=== PATIENT | female | born 1960 | race African-American/Black ===

== ENCOUNTER 2017-11-15 21:54 | Emergency (ER) | payer MEDICARE, MEDICAID ==
[~2017-11-15] VITALS: Ht 177.8 cm; Wt 91.0 kg
[~2017-11-15 21:54] MED LIST: AMLO10TA4 PO; ATOR10TA PO; FERR-63 PO; LABE200T28 PO; LIDO700A TP; LISI-604 PO; OMEP40CA34 PO; OXYC-100 PO
[2017-11-15 22:19] VITALS: BP 101/61
== END 2017-11-16 01:01 | disposition left against medical advice (07) ==
LOC: ER 21:54
DX: R73.9 Hyperglycemia, unspecified (principal); Z53.21 Procedure and treatment not carried out due to patient leaving prior to being seen by health care provider

== ENCOUNTER 2018-04-26 20:30 | Inpatient (IN) | payer MEDICARE, MEDICAID ==
[~2018-04-26] VITALS: Ht 177.8 cm; Wt 79.0 kg
[2018-04-26 23:00] VITALS: BP 151/64
[2018-04-26] MEDS ORDERED: NON FORMULARY PATIENT HOME MED EA XX SCH ×2 (23:45)
[2018-04-26] MEDS ORDERED: CLONIDINE 0.1MG TABLET PO PRN (23:45)
[2018-04-26] MEDS ORDERED: IPRATROPIUM/ALBUTEROL 0.5-3(2.5)MG/3ML NEB HHN PRN (23:45)
[2018-04-26] MEDS ORDERED: NITROGLYCERIN 0.4MG TABLET SL SL PRN (23:45)
[2018-04-26] MEDS ORDERED: DEXTROSE 50% WATER 50ML SYRINGE IV PRN ×2 (23:45)
[2018-04-26] MEDS ORDERED: POLYETHYLENE GLYCOL 3350 (17GM) 1 DOSE PACK PO PRN (23:45)
[2018-04-27] MEDS ORDERED: MORPHINE SULFATE 4 MG/ML CPJ (NOT FOR IM USE) IV PRN
[2018-04-27] MEDS ORDERED: IBUPROFEN 400MG TABLET PO PRN
[2018-04-27] MEDS: ATORVASTATIN CALCIUM 20MG TABLET PO SCH ×2 (00:25→21:15)
[2018-04-27] MEDS: TEMAZEPAM 15MG CAPSULE PO SCH ×2 (00:28→21:00)
[2018-04-27] MEDS ORDERED: INSULIN (00:44)
[2018-04-27] MEDS ORDERED: BLOOD SUGAR DIAGNOSTIC STRIP TEST SCH (06:30)
[2018-04-27 06:59] LABS: BASOPHILS % 0.2 % (0.0-2.0); EOSINOPHILS % 0.7 % (0.0-5.0); HEMATOCRIT. 29.7 % (36.0-48.0); HEMOGLOBIN. 10.2 g/dL (12.0-16.0); LYMPHOCYTES % 32.3 % (20.0-50.0); MEAN CORPUSCULAR HEMOGLOBIN 27.4 pg (28.0-32.0); MEAN CORPUSCULAR VOLUME 80.2 fL (81.0-99.0); MEAN PLATELET VOLUME 8.4 fl (7.4-10.4); MONOCYTES % 8.2 % (2.0-8.0); NEUTROPHILS % 58.6 % (40.0-76.0); PLATELET 185 x1000/uL (130-400); RED CELL DISTRIBUTION WIDTH 13.4 % (11.6-14.6)
[2018-04-27] MEDS: BLOOD SUGAR DIAGNOSTIC STRIP TEST SCH ×4 (07:05→21:23)
[2018-04-27] MEDS: INSULIN LISPRO 100 UNITS/ML SUBCUT SCH ×4 (07:08→21:51)
[2018-04-27 07:17] LABS: INR 1.1; PROTHROMBIN TIME 10.7 sec (9.1-11.1)
[2018-04-27 07:24] LABS: CHLORIDE 107 mEq/L (98-107)
[2018-04-27 07:47] LABS: T4 FREE 3.11 ng/dL (0.76-1.46)
[2018-04-27] MEDS: TRAMADOL 50MG TABLET PO PRN ×2 (07:54→15:10)
[2018-04-27 08:00] VITALS: BP 157/72
[2018-04-27] MEDS: METOPROLOL TARTRATE 25MG TABLET PO SCH ×2 (08:55→21:17)
[2018-04-27] MEDS: LEVETIRACETAM 500MG TABLET PO SCH ×2 (08:56→21:14)
[2018-04-27] MEDS: AMLODIPINE 10MG TABLET PO SCH (08:56)
[2018-04-27] MEDS: APIXABAN 5 MG TABLET PO SCH ×2 (08:56→18:24)
[2018-04-27] MEDS: METHIMAZOLE 10MG TABLET PO SCH ×2 (08:57→18:25)
[2018-04-27] MEDS: LISINOPRIL 20MG TABLET PO SCH ×2 (08:58→21:18)
[2018-04-27] MEDS ORDERED: CLOPIDOGREL 75MG TABLET PO SCH (09:00)
[2018-04-27] MEDS: CYCLOBENZAPRINE 10MG TABLET PO PRN (09:56)
[2018-04-27 20:00] VITALS: BP 143/65
[2018-04-27 20:40] LABS: LDL CHOLESTEROL 65 mg/dL (5-100)
[2018-04-27 20:41] LABS: ETHANOL BLOOD < 10 mg/dL
[2018-04-27 20:45] LABS: T4 FREE 3.23 ng/dL (0.76-1.46)
[2018-04-27 20:46] LABS: HDL CHOLESTEROL 27 mg/dL (40-59)
[2018-04-27] MEDS: INSULIN GLARGINE UD 100 UNITS/ML SYR SUBCUT SCH (21:48)
[2018-04-28] MEDS: BLOOD SUGAR DIAGNOSTIC STRIP TEST SCH ×4 (06:49→21:13)
[2018-04-28] MEDS: INSULIN LISPRO 100 UNITS/ML SUBCUT SCH ×4 (07:10→21:25)
[2018-04-28 08:00] VITALS: BP 137/67
[2018-04-28 08:12] LABS: PHOSPHORUS 4.6 mg/dL (2.5-4.9)
[2018-04-28] MEDS: TRAMADOL 50MG TABLET PO PRN ×2 (08:54→20:59)
[2018-04-28] MEDS: LEVETIRACETAM 500MG TABLET PO SCH ×2 (08:54→20:57)
[2018-04-28] MEDS: METHIMAZOLE 10MG TABLET PO SCH ×2 (08:55→16:31)
[2018-04-28] MEDS: LISINOPRIL 20MG TABLET PO SCH ×2 (08:55→20:58)
[2018-04-28] MEDS: METOPROLOL TARTRATE 25MG TABLET PO SCH (08:56)
[2018-04-28] MEDS: APIXABAN 5 MG TABLET PO SCH ×2 (08:56→16:31)
[2018-04-28] MEDS: AMLODIPINE 10MG TABLET PO SCH (09:00)
[2018-04-28] MEDS: CYCLOBENZAPRINE 10MG TABLET PO PRN (11:17)
[2018-04-28 12:36] LABS: FOLIC ACID (FOLATE) SERUM 16.8 ng/mL (>5.38)
[2018-04-28 13:12] LABS: CLARITY URINE CLEAR (CLEAR); COLOR URINE YELLOW (YELLOW); KETONES URINE NEGATIVE (NEGATIVE); LEUKOCYTE ESTERASE URINE NEGATIVE (NEGATIVE); NITRITE URINE NEGATIVE (NEGATIVE); OCCULT BLOOD URINE NEGATIVE (NEGATIVE); PROTEIN URINE TRACE (NEGATIVE); SPECIFIC GRAVITY URINE 1.023 (1.005-1.030)
[2018-04-28 13:48] LABS: *AMPHETAMINES SCREEN URINE NEGATIVE (NEGATIVE); *BARBITURATES SCREEN URINE NEGATIVE (NEGATIVE)
[2018-04-28 13:49] LABS: *BENZODIAZEPINES SCREEN URINE NEGATIVE (NEGATIVE); *COCAINE SCREEN URINE NEGATIVE (NEGATIVE); CANNABINOID URINE SCREEN NEGATIVE (NEGATIVE); METHADONE URINE SCREEN NEGATIVE (NEGATIVE); OPIATES URINE SCREEN PRESUMTIVE POSITIVE (NEGATIVE); PHENCYCLIDINE URINE SCREEN NEGATIVE (NEGATIVE)
[2018-04-28] MEDS ORDERED: CYCLOBENZAPRINE 10MG TABLET PO SCH (14:00)
[2018-04-28] MEDS: LIDOCAINE 5% PATCH TOP SCH (16:31)
[2018-04-28] MEDS ORDERED: NON FORMULARY PATIENT HOME MED EA XX SCH (16:45)
[2018-04-28 20:00] VITALS: BP 131/68
[2018-04-28] MEDS ORDERED: IRON SUCROSE COMPLEX 100 MG in SODIUM CHLORIDE 0.9% 100 ML IV SCH (20:00)
[2018-04-28] MEDS: ATORVASTATIN CALCIUM 20MG TABLET PO SCH (20:56)
[2018-04-28] MEDS: TEMAZEPAM 15MG CAPSULE PO SCH (20:57)
[2018-04-28] MEDS: PROPRANOLOL HCL 10MG TABLET PO SCH (21:00)
[2018-04-28] MEDS: INSULIN GLARGINE UD 100 UNITS/ML SYR SUBCUT SCH (23:23)
[2018-04-29 04:00] VITALS: BP 119/64
[2018-04-29] MEDS: BLOOD SUGAR DIAGNOSTIC STRIP TEST SCH ×5 (06:30→23:30)
[2018-04-29] MEDS: INSULIN LISPRO 100 UNITS/ML SUBCUT SCH ×3 (06:30→17:46)
[2018-04-29 06:53] LABS: CHLORIDE 104 mEq/L (98-107)
[2018-04-29 06:55] LABS: BASOPHILS % 0.3 % (0.0-2.0); EOSINOPHILS % 1.3 % (0.0-5.0); HEMATOCRIT. 31.3 % (36.0-48.0); HEMOGLOBIN. 10.5 g/dL (12.0-16.0); LYMPHOCYTES % 41.3 % (20.0-50.0); MEAN CORPUSCULAR HEMOGLOBIN 27.2 pg (28.0-32.0); MEAN CORPUSCULAR VOLUME 80.9 fL (81.0-99.0); MEAN PLATELET VOLUME 8.5 fl (7.4-10.4); MONOCYTES % 10.4 % (2.0-8.0); NEUTROPHILS % 46.7 % (40.0-76.0); PLATELET 185 x1000/uL (130-400); RED BLOOD CELL COUNT 3.87 mill/uL (4.2-5.4); RED CELL DISTRIBUTION WIDTH 13.3 % (11.6-14.6)
[2018-04-29 08:00] VITALS: BP 138/72
[2018-04-29] MEDS: LEVETIRACETAM 500MG TABLET PO SCH ×2 (08:59→23:10)
[2018-04-29] MEDS: METHIMAZOLE 10MG TABLET PO SCH ×2 (09:00→17:51)
[2018-04-29] MEDS: APIXABAN 5 MG TABLET PO SCH ×2 (09:00→17:51)
[2018-04-29] MEDS: AMLODIPINE 10MG TABLET PO SCH (09:00)
[2018-04-29] MEDS: LISINOPRIL 20MG TABLET PO SCH ×2 (09:00→23:13)
[2018-04-29] MEDS: LIDOCAINE 5% PATCH TOP SCH (09:02)
[2018-04-29] MEDS: PROPRANOLOL HCL 10MG TABLET PO SCH ×2 (09:14→23:09)
[2018-04-29] MEDS: TRAMADOL 50MG TABLET PO PRN ×2 (09:15→13:00)
[2018-04-29 20:00] VITALS: BP 117/65
[2018-04-29] MEDS: TEMAZEPAM 15MG CAPSULE PO SCH (23:10)
[2018-04-29] MEDS: ATORVASTATIN CALCIUM 20MG TABLET PO SCH (23:10)
[2018-04-29] MEDS: INSULIN GLARGINE UD 100 UNITS/ML SYR SUBCUT SCH (23:36)
[2018-04-30 06:00] VITALS: BP 116/62
[2018-04-30] MEDS: INSULIN LISPRO 100 UNITS/ML SUBCUT SCH ×3 (06:49→18:22)
[2018-04-30 08:00] VITALS: BP 120/59
[2018-04-30] MEDS: APIXABAN 5 MG TABLET PO SCH ×2 (09:30→18:13)
[2018-04-30] MEDS: LISINOPRIL 20MG TABLET PO SCH ×2 (09:30→21:09)
[2018-04-30] MEDS: AMLODIPINE 10MG TABLET PO SCH (09:30)
[2018-04-30] MEDS: LEVETIRACETAM 500MG TABLET PO SCH ×2 (09:31→21:09)
[2018-04-30] MEDS: METHIMAZOLE 10MG TABLET PO SCH ×2 (09:31→18:13)
[2018-04-30] MEDS: PROPRANOLOL HCL 10MG TABLET PO SCH ×2 (09:31→21:08)
[2018-04-30] MEDS: LIDOCAINE 5% PATCH TOP SCH (09:33)
[2018-04-30] MEDS: TRAMADOL 50MG TABLET PO PRN ×2 (09:44→19:01)
[2018-04-30] MEDS ORDERED: BISACODYL 10MG SUPP PR PRN (11:30)
[2018-04-30] MEDS ORDERED: NA PHOS,M-B/NA PHOS,DI-BA ENEMA 118ML PR NR (11:30)
[2018-04-30] MEDS: BLOOD SUGAR DIAGNOSTIC STRIP TEST SCH ×3 (12:10→21:53)
[2018-04-30] MEDS: LACTULOSE 20G/30ML UDC PO SCH ×3 (12:52→21:09)
[2018-04-30 13:06] LABS: ANTI-THROMBIN ACTIVITY 134 % (75-135); DRVVT LA 61.7 sec (0.0-47.0); PROTEIN C FUNCTIONAL 127 % (73-180)
[2018-04-30] MEDS: FERROUS SULFATE 325MG TABLET PO SCH ×2 (13:38→18:13)
[2018-04-30] MEDS: DOCUSATE SODIUM 100MG CAPSULE PO SCH (17:00)
[2018-04-30 20:00] VITALS: BP 138/66
[2018-04-30] MEDS: CYCLOBENZAPRINE 10MG TABLET PO PRN (21:08)
[2018-04-30] MEDS: TEMAZEPAM 15MG CAPSULE PO SCH (21:08)
[2018-04-30] MEDS: ATORVASTATIN CALCIUM 20MG TABLET PO SCH (21:09)
[2018-04-30] MEDS: POLYETHYLENE GLYCOL 3350 (17GM) 1 DOSE PACK PO SCH (21:15)
[2018-04-30] MEDS: INSULIN GLARGINE UD 100 UNITS/ML SYR SUBCUT SCH (22:48)
[2018-05-01 02:45] VITALS: BP 144/72
[2018-05-01 06:00] VITALS: BP 137/63
[2018-05-01] MEDS: BLOOD SUGAR DIAGNOSTIC STRIP TEST SCH ×4 (06:06→20:34)
[2018-05-01] MEDS: INSULIN LISPRO 100 UNITS/ML SUBCUT SCH ×3 (07:42→17:35)
[2018-05-01] MEDS: LIDOCAINE 5% PATCH TOP SCH (08:54)
[2018-05-01] MEDS: DOCUSATE SODIUM 100MG CAPSULE PO SCH ×2 (08:56→17:28)
[2018-05-01] MEDS: APIXABAN 5 MG TABLET PO SCH ×2 (08:57→17:28)
[2018-05-01] MEDS: METHIMAZOLE 10MG TABLET PO SCH ×2 (08:57→17:28)
[2018-05-01] MEDS: ASCORBIC ACID 500 MG TABLET PO SCH (08:57)
[2018-05-01] MEDS: FERROUS SULFATE 325MG TABLET PO SCH ×3 (08:57→17:28)
[2018-05-01] MEDS: LEVETIRACETAM 500MG TABLET PO SCH ×2 (08:58→20:25)
[2018-05-01] MEDS: AMLODIPINE 10MG TABLET PO SCH (09:00)
[2018-05-01] MEDS ORDERED: NA PHOS,M-B/NA PHOS,DI-BA ENEMA 118ML PR PRN (09:00)
[2018-05-01] MEDS: LISINOPRIL 20MG TABLET PO SCH ×2 (09:00→20:28)
[2018-05-01] MEDS: PROPRANOLOL HCL 10MG TABLET PO SCH ×2 (09:00→20:26)
[2018-05-01 10:06] LABS: DRVVT MIX LA 47.3 sec (0.0-47.0)
[2018-05-01 13:08] LABS: LUPUS ANTICOAG INTERPRETATION Comment: (.)
[2018-05-01 20:00] VITALS: BP 132/75
[2018-05-01] MEDS: ATORVASTATIN CALCIUM 20MG TABLET PO SCH (20:26)
[2018-05-01] MEDS: TEMAZEPAM 15MG CAPSULE PO SCH (20:28)
[2018-05-01] MEDS: TRAMADOL 50MG TABLET PO PRN (20:28)
[2018-05-01] MEDS: POLYETHYLENE GLYCOL 3350 (17GM) 1 DOSE PACK PO SCH (20:33)
[2018-05-01] MEDS: INSULIN GLARGINE UD 100 UNITS/ML SYR SUBCUT SCH (21:42)
[2018-05-02] MEDS: BLOOD SUGAR DIAGNOSTIC STRIP TEST SCH ×4 (06:25→22:00)
[2018-05-02] MEDS: INSULIN LISPRO 100 UNITS/ML SUBCUT SCH ×3 (06:30→17:34)
[2018-05-02 07:00] LABS: BASOPHILS % 0.3 % (0.0-2.0); EOSINOPHILS % 1.4 % (0.0-5.0); HEMATOCRIT. 29.5 % (36.0-48.0); HEMOGLOBIN. 10.3 g/dL (12.0-16.0); LYMPHOCYTES % 43.8 % (20.0-50.0); MEAN CORPUSCULAR HEMOGLOBIN 27.7 pg (28.0-32.0); MEAN CORPUSCULAR VOLUME 79.5 fL (81.0-99.0); MEAN PLATELET VOLUME 8.2 fl (7.4-10.4); MONOCYTES % 9.6 % (2.0-8.0); NEUTROPHILS % 44.9 % (40.0-76.0); PLATELET 180 x1000/uL (130-400); RED BLOOD CELL COUNT 3.71 mill/uL (4.2-5.4); RED CELL DISTRIBUTION WIDTH 13.4 % (11.6-14.6)
[2018-05-02 07:26] LABS: CHLORIDE 105 mEq/L (98-107)
[2018-05-02 08:00] VITALS: BP 124/76
[2018-05-02] MEDS: AMLODIPINE 10MG TABLET PO SCH (09:12)
[2018-05-02] MEDS: DOCUSATE SODIUM 100MG CAPSULE PO SCH ×2 (09:12→17:31)
[2018-05-02] MEDS: METHIMAZOLE 10MG TABLET PO SCH ×2 (09:13→17:31)
[2018-05-02] MEDS: LISINOPRIL 20MG TABLET PO SCH (09:13)
[2018-05-02] MEDS: ASCORBIC ACID 500 MG TABLET PO SCH (09:13)
[2018-05-02] MEDS: LEVETIRACETAM 500MG TABLET PO SCH ×2 (09:13→21:52)
[2018-05-02] MEDS: FERROUS SULFATE 325MG TABLET PO SCH ×3 (09:14→17:31)
[2018-05-02] MEDS: APIXABAN 5 MG TABLET PO SCH ×2 (09:14→17:31)
[2018-05-02] MEDS: PROPRANOLOL HCL 10MG TABLET PO SCH (09:14)
[2018-05-02] MEDS: LIDOCAINE 5% PATCH TOP SCH (09:15)
[2018-05-02] MEDS: HYDROCODONE/ACETAMINOPHEN 5/325MG TABLET PO PRN (10:30)
[2018-05-02 13:06] LABS: ANTI-CARDIOLIPIN AB IGA < 9 APL U/mL (0-11); ANTI-CARDIOLIPIN AB IGG < 9 GPL U/mL (0-14); ANTI-CARDIOLIPIN AB IGM < 9 MPL U/mL (0-12)
[2018-05-02] MEDS ORDERED: POTASSIUM CHLORIDE 20MEQ TABLET SR PO SCH (13:45)
[2018-05-02 14:16] VITALS: BP 113/54
[2018-05-02] MEDS: PROPRANOLOL HCL 20MG TABLET PO SCH ×2 (14:20→21:54)
[2018-05-02 20:00] VITALS: BP_SYST 125; BP_SYST 138; BP_DIAS 62; BP_DIAS 77
[2018-05-02] MEDS: TRAMADOL 50MG TABLET PO PRN (20:23)
[2018-05-02] MEDS: POLYETHYLENE GLYCOL 3350 (17GM) 1 DOSE PACK PO SCH (21:52)
[2018-05-02] MEDS: ATORVASTATIN CALCIUM 20MG TABLET PO SCH (21:52)
[2018-05-02] MEDS: LISINOPRIL 10MG TABLET PO SCH (21:53)
[2018-05-02] MEDS: INSULIN GLARGINE UD 100 UNITS/ML SYR SUBCUT SCH (22:39)
[2018-05-03] MEDS: PROPRANOLOL HCL 20MG TABLET PO SCH ×3 (06:35→18:19)
[2018-05-03] MEDS: BLOOD SUGAR DIAGNOSTIC STRIP TEST SCH ×4 (07:04→21:28)
[2018-05-03 07:55] VITALS: BP 134/62
[2018-05-03] MEDS: LEVETIRACETAM 500MG TABLET PO SCH ×2 (08:40→21:29)
[2018-05-03] MEDS: APIXABAN 5 MG TABLET PO SCH ×2 (08:40→18:18)
[2018-05-03] MEDS: DOCUSATE SODIUM 100MG CAPSULE PO SCH ×2 (08:40→18:18)
[2018-05-03] MEDS: ASCORBIC ACID 500 MG TABLET PO SCH (08:40)
[2018-05-03] MEDS: METHIMAZOLE 10MG TABLET PO SCH ×2 (08:41→18:18)
[2018-05-03] MEDS: AMLODIPINE 10MG TABLET PO SCH (08:41)
[2018-05-03] MEDS: LISINOPRIL 10MG TABLET PO SCH ×2 (08:42→21:30)
[2018-05-03] MEDS: LIDOCAINE 5% PATCH TOP SCH (08:50)
[2018-05-03] MEDS: FERROUS SULFATE 325MG TABLET PO SCH ×3 (08:56→18:18)
[2018-05-03] MEDS: HYDROCODONE/ACETAMINOPHEN 5/325MG TABLET PO PRN (09:00)
[2018-05-03] MEDS: INSULIN LISPRO 100 UNITS/ML SUBCUT SCH ×3 (09:01→18:25)
[2018-05-03] MEDS: TRAMADOL 50MG TABLET PO PRN (13:35)
[2018-05-03 20:00] VITALS: BP 134/73
[2018-05-03] MEDS: POLYETHYLENE GLYCOL 3350 (17GM) 1 DOSE PACK PO SCH (21:00)
[2018-05-03] MEDS: ATORVASTATIN CALCIUM 20MG TABLET PO SCH (21:29)
[2018-05-03] MEDS: INSULIN GLARGINE UD 100 UNITS/ML SYR SUBCUT SCH (21:38)
[2018-05-04] MEDS: PROPRANOLOL HCL 20MG TABLET PO SCH ×4 (00:26→17:47)
[2018-05-04] MEDS: BLOOD SUGAR DIAGNOSTIC STRIP TEST SCH ×4 (06:39→21:21)
[2018-05-04] MEDS: INSULIN LISPRO 100 UNITS/ML SUBCUT SCH ×3 (06:43→17:41)
[2018-05-04 07:21] LABS: 25-HYDROXY VITAMIN D3 21 ng/mL (.)
[2018-05-04 08:02] VITALS: BP 150/68
[2018-05-04] MEDS: LIDOCAINE 5% PATCH TOP SCH (09:21)
[2018-05-04] MEDS: DOCUSATE SODIUM 100MG CAPSULE PO SCH ×2 (09:21→17:35)
[2018-05-04] MEDS: APIXABAN 5 MG TABLET PO SCH ×2 (09:21→17:35)
[2018-05-04] MEDS: METHIMAZOLE 10MG TABLET PO SCH ×2 (09:21→17:36)
[2018-05-04] MEDS: FERROUS SULFATE 325MG TABLET PO SCH ×3 (09:21→17:36)
[2018-05-04] MEDS: AMLODIPINE 10MG TABLET PO SCH (09:22)
[2018-05-04] MEDS: LEVETIRACETAM 500MG TABLET PO SCH ×2 (09:22→21:18)
[2018-05-04] MEDS: ASCORBIC ACID 500 MG TABLET PO SCH (09:22)
[2018-05-04] MEDS: LISINOPRIL 10MG TABLET PO SCH ×2 (09:22→21:21)
[2018-05-04] MEDS ORDERED: ERGOCALCIFEROL 50000UNITS CAPSULE PO SCH (14:00)
[2018-05-04 16:17] LABS: BASOPHILS % 0.2 % (0.0-2.0); EOSINOPHILS % 0.9 % (0.0-5.0); HEMATOCRIT. 30.6 % (36.0-48.0); HEMOGLOBIN. 10.5 g/dL (12.0-16.0); LYMPHOCYTES % 33.9 % (20.0-50.0); MEAN CORPUSCULAR HEMOGLOBIN 27.1 pg (28.0-32.0); MEAN CORPUSCULAR VOLUME 79.1 fL (81.0-99.0); MEAN PLATELET VOLUME 8.4 fl (7.4-10.4); MONOCYTES % 5.5 % (2.0-8.0); NEUTROPHILS % 59.5 % (40.0-76.0); PLATELET 226 x1000/uL (130-400); RED BLOOD CELL COUNT 3.87 mill/uL (4.2-5.4); RED CELL DISTRIBUTION WIDTH 12.9 % (11.6-14.6)
[2018-05-04 16:21] LABS: CHLORIDE 104 mEq/L (98-107)
[2018-05-04 20:00] VITALS: BP 129/62
[2018-05-04] MEDS: POLYETHYLENE GLYCOL 3350 (17GM) 1 DOSE PACK PO SCH (21:18)
[2018-05-04] MEDS: ATORVASTATIN CALCIUM 20MG TABLET PO SCH (21:18)
[2018-05-04] MEDS: TRAMADOL 50MG TABLET PO PRN (21:20)
[2018-05-04] MEDS: INSULIN GLARGINE UD 100 UNITS/ML SYR SUBCUT SCH (21:24)
[2018-05-05] MEDS: PROPRANOLOL HCL 20MG TABLET PO SCH ×4 (06:00→17:10)
[2018-05-05] MEDS: INSULIN LISPRO 100 UNITS/ML SUBCUT SCH ×3 (06:43→18:01)
[2018-05-05] MEDS: BLOOD SUGAR DIAGNOSTIC STRIP TEST SCH ×4 (06:43→21:11)
[2018-05-05 08:15] VITALS: BP 149/76
[2018-05-05] MEDS: FERROUS SULFATE 325MG TABLET PO SCH ×3 (09:42→17:09)
[2018-05-05] MEDS: DOCUSATE SODIUM 100MG CAPSULE PO SCH ×2 (09:42→17:09)
[2018-05-05] MEDS: APIXABAN 5 MG TABLET PO SCH ×2 (09:42→17:09)
[2018-05-05] MEDS: ASCORBIC ACID 500 MG TABLET PO SCH (09:42)
[2018-05-05] MEDS: METHIMAZOLE 10MG TABLET PO SCH ×2 (09:42→17:09)
[2018-05-05] MEDS: LEVETIRACETAM 500MG TABLET PO SCH ×2 (09:43→21:03)
[2018-05-05] MEDS: AMLODIPINE 10MG TABLET PO SCH (09:43)
[2018-05-05] MEDS: LISINOPRIL 10MG TABLET PO SCH ×2 (09:43→21:04)
[2018-05-05] MEDS: LIDOCAINE 5% PATCH TOP SCH (09:56)
[2018-05-05 20:00] VITALS: BP 135/69
[2018-05-05] MEDS: ATORVASTATIN CALCIUM 20MG TABLET PO SCH (21:04)
[2018-05-05] MEDS: HYDROCODONE/ACETAMINOPHEN 5/325MG TABLET PO PRN (21:06)
[2018-05-05] MEDS: POLYETHYLENE GLYCOL 3350 (17GM) 1 DOSE PACK PO SCH (21:06)
[2018-05-05] MEDS: INSULIN GLARGINE UD 100 UNITS/ML SYR SUBCUT SCH (21:21)
[2018-05-06] MEDS: PROPRANOLOL HCL 20MG TABLET PO SCH ×4 (00:48→18:00)
[2018-05-06] MEDS: BLOOD SUGAR DIAGNOSTIC STRIP TEST SCH ×4 (06:13→20:46)
[2018-05-06] MEDS: INSULIN LISPRO 100 UNITS/ML SUBCUT SCH ×3 (07:03→18:16)
[2018-05-06 08:00] VITALS: BP 143/69
[2018-05-06] MEDS: LIDOCAINE 5% PATCH TOP SCH (09:28)
[2018-05-06] MEDS: AMLODIPINE 10MG TABLET PO SCH (09:29)
[2018-05-06] MEDS: FERROUS SULFATE 325MG TABLET PO SCH ×3 (09:29→18:02)
[2018-05-06] MEDS: LISINOPRIL 10MG TABLET PO SCH ×2 (09:30→20:38)
[2018-05-06] MEDS: ASCORBIC ACID 500 MG TABLET PO SCH (09:30)
[2018-05-06] MEDS: APIXABAN 5 MG TABLET PO SCH ×2 (09:30→18:02)
[2018-05-06] MEDS: METHIMAZOLE 10MG TABLET PO SCH ×2 (09:31→18:02)
[2018-05-06] MEDS: LEVETIRACETAM 500MG TABLET PO SCH ×2 (09:32→20:37)
[2018-05-06] MEDS: DOCUSATE SODIUM 100MG CAPSULE PO SCH ×2 (09:35→18:02)
[2018-05-06 20:00] VITALS: BP 137/71
[2018-05-06] MEDS: POLYETHYLENE GLYCOL 3350 (17GM) 1 DOSE PACK PO SCH (20:36)
[2018-05-06] MEDS: ATORVASTATIN CALCIUM 20MG TABLET PO SCH (20:37)
[2018-05-06] MEDS: INSULIN GLARGINE UD 100 UNITS/ML SYR SUBCUT SCH (21:20)
[2018-05-07] MEDS: PROPRANOLOL HCL 20MG TABLET PO SCH ×4 (00:07→17:24)
[2018-05-07] MEDS ORDERED: HYDROCODONE/ACETAMINOPHEN 5/325MG TABLET PO PRN (00:15)
[2018-05-07] MEDS ORDERED: TRAMADOL 50MG TABLET PO PRN (02:00)
[2018-05-07] MEDS: BLOOD SUGAR DIAGNOSTIC STRIP TEST SCH ×4 (06:07→21:00)
[2018-05-07] MEDS: INSULIN LISPRO 100 UNITS/ML SUBCUT SCH ×3 (06:21→17:28)
[2018-05-07 08:00] VITALS: BP 133/75
[2018-05-07] MEDS: LISINOPRIL 10MG TABLET PO SCH ×2 (09:07→22:06)
[2018-05-07] MEDS: LIDOCAINE 5% PATCH TOP SCH (09:07)
[2018-05-07] MEDS: AMLODIPINE 10MG TABLET PO SCH (09:08)
[2018-05-07] MEDS: LEVETIRACETAM 500MG TABLET PO SCH ×2 (09:08→22:05)
[2018-05-07] MEDS: ASCORBIC ACID 500 MG TABLET PO SCH (09:08)
[2018-05-07] MEDS: DOCUSATE SODIUM 100MG CAPSULE PO SCH ×2 (09:08→17:24)
[2018-05-07] MEDS: APIXABAN 5 MG TABLET PO SCH ×2 (09:08→17:25)
[2018-05-07] MEDS: METHIMAZOLE 10MG TABLET PO SCH ×2 (09:08→17:25)
[2018-05-07] MEDS: FERROUS SULFATE 325MG TABLET PO SCH ×3 (09:08→17:24)
[2018-05-07 17:41] LABS: BASOPHILS % 0.3 % (0.0-2.0); HEMATOCRIT. 32.5 % (36.0-48.0); HEMOGLOBIN. 10.9 g/dL (12.0-16.0); LYMPHOCYTES % 27.6 % (20.0-50.0); MEAN CORPUSCULAR HEMOGLOBIN 26.9 pg (28.0-32.0); MEAN PLATELET VOLUME 8.1 fl (7.4-10.4); NEUTROPHILS % 65.1 % (40.0-76.0); PLATELET 231 x1000/uL (130-400); RED BLOOD CELL COUNT 4.07 mill/uL (4.2-5.4); RED CELL DISTRIBUTION WIDTH 13.2 % (11.6-14.6)
[2018-05-07 18:55] LABS: CHLORIDE 103 mEq/L (98-107)
[2018-05-07 20:00] VITALS: BP 122/59
[2018-05-07] MEDS: POLYETHYLENE GLYCOL 3350 (17GM) 1 DOSE PACK PO SCH (22:04)
[2018-05-07] MEDS: ATORVASTATIN CALCIUM 20MG TABLET PO SCH (22:05)
[2018-05-07] MEDS: INSULIN GLARGINE UD 100 UNITS/ML SYR SUBCUT SCH (22:34)
[2018-05-08] MEDS: PROPRANOLOL HCL 20MG TABLET PO SCH ×4 (00:48→17:46)
[2018-05-08] MEDS: BLOOD SUGAR DIAGNOSTIC STRIP TEST SCH ×4 (06:17→21:53)
[2018-05-08] MEDS: INSULIN LISPRO 100 UNITS/ML SUBCUT SCH ×3 (06:25→16:46)
[2018-05-08 07:15] LABS: BASOPHILS % 0.7 % (0.0-2.0); EOSINOPHILS % 1.3 % (0.0-5.0); HEMATOCRIT. 30.8 % (36.0-48.0); HEMOGLOBIN. 10.7 g/dL (12.0-16.0); LYMPHOCYTES % 34.9 % (20.0-50.0); MEAN CORPUSCULAR HEMOGLOBIN 27.8 pg (28.0-32.0); MEAN CORPUSCULAR VOLUME 79.8 fL (81.0-99.0); MONOCYTES % 5.6 % (2.0-8.0); NEUTROPHILS % 57.5 % (40.0-76.0); PLATELET 233 x1000/uL (130-400); RED BLOOD CELL COUNT 3.86 mill/uL (4.2-5.4); RED CELL DISTRIBUTION WIDTH 13.3 % (11.6-14.6)
[2018-05-08 07:56] LABS: CHLORIDE 107 mEq/L (98-107)
[2018-05-08 08:00] VITALS: BP 155/78
[2018-05-08] MEDS: METHIMAZOLE 10MG TABLET PO SCH ×2 (08:32→16:39)
[2018-05-08] MEDS: ASCORBIC ACID 500 MG TABLET PO SCH (08:32)
[2018-05-08] MEDS: DOCUSATE SODIUM 100MG CAPSULE PO SCH ×2 (08:32→16:30)
[2018-05-08] MEDS: LIDOCAINE 5% PATCH TOP SCH (08:32)
[2018-05-08] MEDS: APIXABAN 5 MG TABLET PO SCH ×2 (08:33→16:30)
[2018-05-08] MEDS: FERROUS SULFATE 325MG TABLET PO SCH ×3 (08:33→16:30)
[2018-05-08] MEDS: AMLODIPINE 10MG TABLET PO SCH (08:33)
[2018-05-08] MEDS: LEVETIRACETAM 500MG TABLET PO SCH ×2 (08:33→21:52)
[2018-05-08] MEDS: LISINOPRIL 10MG TABLET PO SCH ×2 (08:34→21:53)
[2018-05-08 12:38] LABS: T4 FREE 2.15 ng/dL (0.76-1.46)
[2018-05-08 20:00] VITALS: BP 140/71
[2018-05-08] MEDS: ATORVASTATIN CALCIUM 20MG TABLET PO SCH (21:53)
[2018-05-08] MEDS: POLYETHYLENE GLYCOL 3350 (17GM) 1 DOSE PACK PO SCH (21:53)
[2018-05-08] MEDS: INSULIN GLARGINE UD 100 UNITS/ML SYR SUBCUT SCH (21:54)
[2018-05-09] MEDS: PROPRANOLOL HCL 20MG TABLET PO SCH ×3 (06:32→11:42)
[2018-05-09] MEDS: BLOOD SUGAR DIAGNOSTIC STRIP TEST SCH ×2 (06:35→11:23)
[2018-05-09 08:00] VITALS: BP 133/67
[2018-05-09] MEDS: DOCUSATE SODIUM 100MG CAPSULE PO SCH (08:21)
[2018-05-09] MEDS: ASCORBIC ACID 500 MG TABLET PO SCH (08:21)
[2018-05-09] MEDS: LEVETIRACETAM 500MG TABLET PO SCH (08:21)
[2018-05-09] MEDS: METHIMAZOLE 10MG TABLET PO SCH (08:21)
[2018-05-09] MEDS: FERROUS SULFATE 325MG TABLET PO SCH ×2 (08:21→12:10)
[2018-05-09] MEDS: LISINOPRIL 10MG TABLET PO SCH (08:21)
[2018-05-09] MEDS: AMLODIPINE 10MG TABLET PO SCH (08:22)
[2018-05-09] MEDS: APIXABAN 5 MG TABLET PO SCH (08:22)
[2018-05-09] MEDS: LIDOCAINE 5% PATCH TOP SCH (08:22)
[2018-05-09] MEDS: INSULIN LISPRO 100 UNITS/ML SUBCUT SCH ×2 (08:29→12:14)
[2018-05-09 10:40] VITALS: BP 133/67
[2018-05-09] MEDS ORDERED: METHIMAZOLE 10MG TABLET PO SCH (13:00)
== END 2018-05-09 14:55 | disposition home health service (06) | DRG 65 ==
PROVIDERS: ADMIT Physical Medicine & Rehabilitation Spinal Cord Injury Medicine; ATTEND Family Medicine Adult Medicine
DX: I63.49 Cerebral infarction due to embolism of other cerebral artery (principal); I47.1 Supraventricular tachycardia; G81.91 Hemiplegia, unspecified affecting right dominant side; E46 Unspecified protein-calorie malnutrition; G40.909 Epilepsy, unspecified, not intractable, without status epilepticus; R13.10 Dysphagia, unspecified; R47.1 Dysarthria and anarthria; R47.01 Aphasia; R26.9 Unspecified abnormalities of gait and mobility; R53.81 Other malaise; F41.9 Anxiety disorder, unspecified; F32.9 Major depressive disorder, single episode, unspecified; E05.00 Thyrotoxicosis with diffuse goiter without thyrotoxic crisis or storm; E11.9 Type 2 diabetes mellitus without complications; D64.9 Anemia, unspecified; E78.00 Pure hypercholesterolemia, unspecified; E78.5 Hyperlipidemia, unspecified; Z88.6 Allergy status to analgesic agent; S01.81XA Laceration without foreign body of other part of head, initial encounter; S51.019A Laceration without foreign body of unspecified elbow, initial encounter; E55.9 Vitamin D deficiency, unspecified; M54.2 Cervicalgia; K21.9 Gastro-esophageal reflux disease without esophagitis; I11.9 Hypertensive heart disease without heart failure; Z96.641 Presence of right artificial hip joint; F17.200 Nicotine dependence, unspecified, uncomplicated; I49.9 Cardiac arrhythmia, unspecified; F09 Unspecified mental disorder due to known physiological condition; W18.39XA Other fall on same level, initial encounter; Y93.89 Activity, other specified; Y92.128 Other place in nursing home as the place of occurrence of the external cause; Y99.8 Other external cause status; Z88.1 Allergy status to other antibiotic agents; Z88.0 Allergy status to penicillin; Z79.4 Long term (current) use of insulin; Z79.02 Long term (current) use of antithrombotics/antiplatelets; Z79.899 Other long term (current) drug therapy; Z79.01 Long term (current) use of anticoagulants; Z82.49 Family history of ischemic heart disease and other diseases of the circulatory system; Z83.3 Family history of diabetes mellitus; Z71.6 Tobacco abuse counseling; Z68.25 Body mass index [BMI] 25.0-25.9, adult
CPT/HCPCS: 36415; 70540; 70551; 72141; 80048; 80053; 80061; 80305; 81003; 81400; 81403; 81407; 81479; 82306; 82607; 82728; 82746; 82962; 83036; 83520; 83540; 83550; 83735; 83880; 84100; 84134; 84439; 84443; 84481; 84630; 85025; 85300; 85303; 85306; 85610; 85613; 85732; 86147; 87086; 92523; 92610; 93005; 93306; 93880; 93970; 97110; 97112; 97116; 97150; 97163; 97167; 97530; 97535; C1893; G0482; G0515; J1815; J2270; J7050